=== PATIENT | female | born 1950 | race Caucasian/White ===

== ENCOUNTER 2016-10-04 23:11 | Emergency (ER) | payer OTHER ==
[2016-10-04 23:23] VITALS: TEMP 98.6; BMI 28.9
--- NOTE | 2016-10-04 23:28 | PDOC ---
History of Present Illness - General Chief Complaint: Edema Stated Complaint: R/O DVT Time Seen by Provider: 10/04/16 23:14 - History of Present Illness Initial Comments: This 65-year-old woman with a history of primary lateral sclerosis and hypertension presents accompanied by her family with left lower leg edema and pain. Patient was seen earlier in urgent care and referred here to rule out DVT. Patient states that pain began in the medial dorsal aspect of the left foot approximately 3 days ago. She subsequently injured the top of her foot but pain had begun before that. No history of antecedent trauma or nonhealing wound. She has not had any recent fever or chills. She also has some pain in the lateral aspect of her right upper thigh. There is no history of trauma in this area. No history of abscesses or cellulitis. No history of DVT/pulmonary embolus or thromboembolic disease. Patient is wheelchair bound but has not had any unusual amount of inactivity. No recent surgery; no recent travel Past History - Past Medical History Allergies/Adverse Reactions: Allergies Allergy/AdvReac Type Severity Reaction Status Date / Time Penicillins Allergy Verified 10/04/16 23:18 Home Medications: Ambulatory Orders Amlodipine Besylate [Norvasc -] 10 mg PO DAILY 10/04/16 Tizanidine HCl 2 mg PO DAILY 10/04/16 Clindamycin HCl [Cleocin HCl] 300 mg PO TID #21 capsule 10/05/16 Cancer: Yes (BREAST) HTN: Yes Other medical history: PRIMARY LATERAL SCLEROSIS - Psycho/Social/Smoking Cessation Hx Anxiety: No Suicidal Ideation: No Smoking History: Never smoked Review of Systems - Review of Systems Able to Perform ROS?: Yes Comments:: 12 point review of systems is negative except for what is noted in the history of present illness *Physical Exam - Vital Signs Last Vital Signs Temp Pulse Resp BP Pulse Ox 98.6 F 118 H 18 155/90 95 10/04/16 23:20 10/04/16 23:20 10/04/16 23:20 10/04/16 23:20 10/04/16 23:20 - Physical Exam Comments: GENERAL:Adult female, alert and oriented 3, severe dysarthria but in no acute distress HEAD: Normal with no signs of trauma. EYES: PERRLA, EOMI, sclera anicteric, conjunctiva clear. ENT: Ears normal, nares patent, oropharynx clear without exudates. Dry mucous membranes. NECK: Normal range of motion, supple without lymphadenopathy, JVD, or masses. LUNGS: Breath sounds equal, clear to auscultation bilaterally. No wheezes, and no crackles. HEART:Regular rate and rhythm, normal S1 and S2 without murmur, rub or gallop. ABDOMEN:.normal bowel sounds No guarding,tenderness or rebound.No masses No distention. EXTREMITIES: Left lower extremity: Moderate nonpitting edema to proximal lower leg Mild tenderness medial aspect of the midfoot without deformity or ecchymosis Moderate erythema of left foot extending to ankle, mild erythema to mid calf No posterior tenderness/ cords or masses palpated Right lower extremity: No erythema/edema noted Mild tenderness to palpation lateral aspect of proximal thigh No posterior tenderness/ cords or masses palpated NEUROLOGICAL: Cranial nerves II through XII grossly intact. Alert and responsive, dysarthric but no dysphasia; nonambulatory, wheelchair-bound ED Treatment Course - LABORATORY CBC & Chemistry Diagram: 10/05/16 00:01 10/05/16 00:01 Medical Decision Making - Medical Decision Making This 65-year-old woman with a diagnosis of primary lateral sclerosis presents with a few day history of left lower leg edema and pain; she also has right lateral, proximal right thigh pain without edema. She was seen in urgent care and was sent here to rule out DVT. Exam as noted above shows erythema and tenderness of the left foot with edema extending to the calf. Although there is no open wound in the area of the erythema/edema and tenderness suggest cellulitis. Doppler duplex study of the right lower leg shows no evidence of DVT The patient herself denies shortness of breath or chest pain. Because the patient was noted to have some respiratory changes by her family("breathing heavily"), d-dimer was evaluated as well as CBC/chemistry profile/INR. Vancomycin 1 g IV administered empirically for lower leg extremity cellulitis Laboratory evaluation was essentially normal with white blood cell count of 9200 ; remainder of CBC is normal. Chemistry profile shows no abnormality of electrolytes, renal function or LFTs. INR is not elevated. D-dimer at 245 is minimally elevated above upper limits of normal of 235ng/ml The patient has taken nonsteroidal anti-inflammatory medications (Advil) without side effects in the past. The patient will be given Toradol 30 mg IV for pain relief. Patient reports some relief in her pain after Toradol 30 mg IV. Patient will be discharged with prescription for clindamycin 300 mg 3 times a day for a week. Meanwhile, patient should plan to see her doctor within the next 3-4 days for follow-up check of the left lower leg cellulitis. She should elevate her legs as much as possible until seen by her doctor. She should return to the emergency room if she experiences worsening pain/redness/swelling or develops fever/chills *DC/Admit/Observation/Transfer Diagnosis at time of Disposition: Cellulitis of left foot - Discharge Dispostion Disposition: HOME Condition at time of disposition: Stable - Prescriptions Prescriptions: Clindamycin HCl [Cleocin HCl] 300 mg PO TID #21 capsule - Referrals Referrals: STAFF,NOT ON [Primary Care Provider] - - Patient Instructions Printed Discharge Instructions: Cellulitis Additional Instructions: keep legs elevated as much as possible clindamycin 300mg 3 times a day for 1 week diclofenac 75mg twice a day as needed for pain followup with your doctor within 3-4 days return to ER if you have worsening pain/swelling/redness or you develop fever
[2016-10-05 00:40] LABS: BASOPHIL 1.2 % (0-2.0); EOSINOPHIL 0.9 % (0-4.5); MCH 27.7 pg (25.7-33.7); MCHC 32.8 g/dl (32.0-36.0); MEAN CELL VOLUME 84.3 fl (80-96); MEAN PLT VOLUME 9.1 fl (7.5-11.1); NEUTROPHILS 54.3 % (42.8-82.8); PLATELET COUNT 320 K/MM3 (134-434); RDW 13.1 % (11.6-15.6); WHITE BLOOD COUNT 9.4 K/mm3 (4.0-10.0)
[2016-10-05] MEDS ORDERED: KETOROLAC TROMETHAMINE 30 MG/1 ML VIAL IVPUSH ONE (00:50)
[2016-10-05] MEDS ORDERED: VANCOMYCIN 1,000 MG in DEXTROSE 5%-WATER - 250 ML IVPB ONE (00:51)
[2016-10-05] MEDS ORDERED: VANCOMYCIN 1,000 MG VIAL (RESTRICTED TO ID ONLY) ONE (00:51)
[2016-10-05] MEDS ORDERED: KETOROLAC TROMETHAMINE 30 MG/1 ML VIAL ONE (00:51)
[2016-10-05 00:59] LABS: ALBUMIN 4.6 g/dl (3.4-5.0); ANION GAP 12 (8-16); BILIRUBIN,TOTAL 0.4 mg/dL (0.2-1.0); CALCIUM 9.8 mg/dL (8.5-10.1); CO2 23 mmol/L (21-32); COCKROFT - GAULT 75.65; CREATININE 0.8 mg/dL (0.55-1.02); GLUCOSE,RANDOM 106 mg/dL (74-106); SGOT/AST 17 U/L (15-37); SGPT/ALT 27 U/L (12-78); TOT PROT 7.7 g/dl (6.4-8.2)
[2016-10-05 01:00] LABS: INR 1.06 (0.82-1.09); PROTHROMBIN TIME (PATIENT) 11.7 SEC (9.98-11.88)
[2016-10-05 01:01] LABS: ALK PHOS 91 U/L (45-117); TROPONIN I < 0.02 ng/ml (0.00-0.05)
[2016-10-05 02:14] VITALS: BP 134/85; PULSE 105
== END 2016-10-05 02:22 | disposition home or self-care (01) ==
LOC: FER 23:11
PROC: 3E03329 Introduction of Other Anti-infective into Peripheral Vein, Percutaneous Approach (ICD-10-PCS; principal; 2016-10-04)
PROC: 3E0333Z Introduction of Anti-inflammatory into Peripheral Vein, Percutaneous Approach (ICD-10-PCS; 2016-10-04)
DX: L03.116 Cellulitis of left lower limb (principal); Z85.3 Personal history of malignant neoplasm of breast; G12.29 Other motor neuron disease
CPT/HCPCS: 36415; 80053; 82550; 82553; 84484; 85025; 85379; 85610; 93971-TC; 96374; 96375; 99283-25

== ENCOUNTER 2017-05-02 18:33 | Emergency (ER) | payer OTHER ==
[2017-05-02 19:07] VITALS: TEMP 98.4; BMI 28.9
[2017-05-02 20:30] LABS: BASOPHIL 0.5 % (0-2.0); EOSINOPHIL 0.8 % (0-4.5); MCH 28.2 pg (25.7-33.7); MCHC 33.6 g/dl (32.0-36.0); MEAN CELL VOLUME 83.9 fl (80-96); NEUTROPHILS 54.6 % (42.8-82.8); PLATELET COUNT 333 K/MM3 (134-434); RDW 12.7 % (11.6-15.6); WHITE BLOOD COUNT 8.9 K/mm3 (4.0-10.8)
[2017-05-02 20:35] LABS: INR 1.07 (0.82-1.09)
[2017-05-02 20:41] LABS: ALBUMIN 4.6 g/dl (3.5-5.0); ALK PHOS 87 U/L (32-92); ANION GAP 10 (8-16); BILIRUBIN,TOTAL 0.4 mg/dl (0.2-1.0); CO2 24 mmol/L (22-28); CREATININE 0.7 mg/dl (0.6-1.3); GLUCOSE,RANDOM 91 mg/dl (74-106); SGOT/AST 28 U/L (10-42); SGPT/ALT 29 U/L (10-40); TOT PROT 7.2 g/dl (6.4-8.3)
[2017-05-02 20:53] LABS: PH,URINE 6.5 (4.5-8); URINE APPEARANCE Clear; URINE BILIRUBIN Negative (NEGATIVE); URINE GLUCOSE (UA) Negative (NEGATIVE); URINE KETONE 2+ (NEGATIVE); URINE LEUK ESTERASE Negative (NEGATIVE); URINE NITRITE Negative (NEGATIVE); URINE PROTEIN Negative (NEGATIVE); URINE UROBILINOGEN 0.2 (0.2-1.0)
[2017-05-02 20:57] LABS: URINE BLOOD Trace-lysed (NEGATIVE); URINE COLOR YELLOW
[2017-05-02 21:21] VITALS: BP 136/76; PULSE 95
--- NOTE | 2017-05-02 21:28 | PDOC ---
History of Present Illness - General History Source: Patient Exam Limitations: No Limitations - History of Present Illness Initial Comments: 05/02/17 21:32 The patient is a 66 year old female with past medical history of primary lateral sclerosis who presents to the ED with complaints of 2 days of substernal chest pain. The patient qualifies the pain as pressure-like and is worse when she lays flat. She additionally complains of a non-productive cough but denies any associated shortness of breath. She reports taking Tylenol for her pain and denies ever having a cardiac workup in the past. The patient denies any recent fever, chills, nausea, vomiting, diarrhea, or urinary complaints. <Paige Staley - Last Filed: 05/02/17 21:32> <Bebo Chandler - Last Filed: 05/03/17 00:25> - General Chief Complaint: Chest Pain Stated Complaint: CHEST PAIN X 2 DAYS Past History <Paige Staley - Last Filed: 05/02/17 21:32> - Past Medical History Cancer: Yes (BREAST) COPD: No HTN: Yes Other medical history: PRIMARY LATERAL SCLEROSIS, WHEELCHAIR BOUND - Suicide/Smoking/Psychosocial Hx Smoking History: Never smoked Hx Alcohol Use: No Drug/Substance Use Hx: No Substance Use Type: None <Bebo Chandler - Last Filed: 05/03/17 00:25> - Past Medical History Allergies/Adverse Reactions: Allergies Allergy/AdvReac Type Severity Reaction Status Date / Time Penicillins Allergy Verified 10/04/16 23:18 Home Medications: Ambulatory Orders Amlodipine Besylate [Norvasc -] 10 mg PO DAILY 10/04/16 Tizanidine HCl 2 mg PO DAILY 10/04/16 Ciprofloxacin [Cipro (Restricted To Id)] 500 mg PO Q12H #6 tablet 05/02/17 Review of Systems - Review of Systems Able to Perform ROS?: Yes Comments:: 05/02/17 21:33 GENERAL/CONSTITUTIONAL: No fever or chills. No weakness. HEAD, EYES, EARS, NOSE AND THROAT: No change in vision. No ear pain or discharge. No sore throat. CARDIOVASCULAR: Present: chest pain No shortness of breath. RESPIRATORY: Present: cough No wheezing, or hemoptysis. GASTROINTESTINAL: No nausea, vomiting, diarrhea or constipation. GENITOURINARY: No dysuria, frequency, or change in urination. MUSCULOSKELETAL: No joint or muscle swelling or pain. No neck or back pain. SKIN: No rash NEUROLOGIC: No headache, vertigo, loss of consciousness, or change in strength/ sensation. ENDOCRINE: No increased thirst. No abnormal weight change. HEMATOLOGIC/LYMPHATIC: No anemia, easy bleeding, or history of blood clots. ALLERGIC/IMMUNOLOGIC: No hives or skin allergy. All Other Systems: Reviewed and Negative <gueroPaige william - Last Filed: 05/02/17 21:32> *Physical Exam - Vital Signs Last Vital Signs Temp Pulse Resp BP Pulse Ox 98.4 F 95 H 22 136/76 95 05/02/17 18:34 05/02/17 21:20 05/02/17 21:20 05/02/17 21:20 05/02/17 21:20 - Physical Exam Comments: 05/02/17 21:33 GENERAL: Awake, alert, and fully oriented, in no acute distress HEAD: No signs of trauma EYES: PERRLA, EOMI, sclera anicteric, conjunctiva clear ENT: Auricles normal inspection, hearing grossly normal, nares patent, oropharynx clear without exudates. Moist mucosa NECK: Normal ROM, supple, no lymphadenopathy, JVD, or masses LUNGS: Breath sounds equal, clear to auscultation bilaterally. No wheezes, and no crackles HEART: Reproducible chest wall tenderness. Regular rate and rhythm, normal S1 and S2, no murmurs, rubs or gallops ABDOMEN: Soft, nontender, normoactive bowel sounds. No guarding, no rebound. No masses EXTREMITIES: Normal range of motion, no edema. No clubbing or cyanosis. No cords, erythema, or tenderness NEUROLOGICAL: Chronic neurologic impairment. Cranial nerves II through XII grossly intact. SKIN: Warm, Dry, normal turgor, no rashes or lesions noted. <LuísPaige - Last Filed: 05/02/17 21:32> - Vital Signs Last Vital Signs Temp Pulse Resp BP Pulse Ox 98.4 F 95 H 22 136/76 95 05/02/17 18:34 05/02/17 21:20 05/02/17 21:20 05/02/17 21:20 05/02/17 21:20 <Bebo Chandler - Last Filed: 05/03/17 00:25> ED Treatment Course - LABORATORY CBC & Chemistry Diagram: 05/02/17 20:00 05/02/17 20:00 - ADDITIONAL ORDERS Additional order review: Laboratory Results 05/02/17 05/02/17 05/02/17 20:45 20:00 20:00 PT with INR INR Sodium 137 Potassium 4.0 Chloride 103 Carbon Dioxide 24 Anion Gap 10 BUN 18 Creatinine 0.7 Creat Clearance w eGFR > 60 Random Glucose 91 Calcium 10.0 Total Bilirubin 0.4 AST 28 ALT 29 Alkaline Phosphatase 87 CK-MB (CK-2) 2.3 Troponin I < 0.03 L Total Protein 7.2 Albumin 4.6 Urine Color Yellow Urine Appearance Clear Urine pH 6.5 Ur Specific [place] 1.025 Urine Protein Negative Urine Glucose (UA) Negative Urine Ketones 2+ H Urine Blood Trace-lysed H Urine Nitrite Negative Urine Bilirubin Negative Urine Urobilinogen 0.2 Ur Leukocyte Esterase Negative 05/02/17 20:00 PT with INR 12.0 INR 1.07 Sodium Potassium Chloride Carbon Dioxide Anion Gap BUN Creatinine Creat Clearance w eGFR Random Glucose Calcium Total Bilirubin AST ALT Alkaline Phosphatase CK-MB (CK-2) Troponin I Total Protein Albumin Urine Color Urine Appearance Urine pH Ur Specific [place] Urine Protein Urine Glucose (UA) Urine Ketones Urine Blood Urine Nitrite Urine Bilirubin Urine Urobilinogen Ur Leukocyte Esterase 05/02/17 20:00 RBC 5.58 H MCV 83.9 MCHC 33.6 RDW 12.7 MPV 9.0 Neutrophils % 54.6 Lymphocytes % 37.1 Monocytes % 7.0 Eosinophils % 0.8 Basophils % 0.5 <Paige Staley - Last Filed: 05/02/17 21:32> - LABORATORY CBC & Chemistry Diagram: 05/02/17 20:00 05/02/17 20:00 - ADDITIONAL ORDERS Additional order review: Laboratory Results 05/02/17 05/02/17 05/02/17 20:45 20:00 20:00 PT with INR INR Sodium 137 Potassium 4.0 Chloride 103 Carbon Dioxide 24 Anion Gap 10 BUN 18 Creatinine 0.7 Creat Clearance w eGFR > 60 Random Glucose 91 Calcium 10.0 Total Bilirubin 0.4 AST 28 ALT 29 Alkaline Phosphatase 87 CK-MB (CK-2) 2.3 Troponin I < 0.03 L Total Protein 7.2 Albumin 4.6 Urine Color Yellow Urine Appearance Clear Urine pH 6.5 Ur Specific [place] 1.025 Urine Protein Negative Urine Glucose (UA) Negative Urine Ketones 2+ H Urine Blood Trace-lysed H Urine Nitrite Negative Urine Bilirubin Negative Urine Urobilinogen 0.2 Ur Leukocyte Esterase Negative 05/02/17 20:00 PT with INR 12.0 INR 1.07 Sodium Potassium Chloride Carbon Dioxide Anion Gap BUN Creatinine Creat Clearance w eGFR Random Glucose Calcium Total Bilirubin AST ALT Alkaline Phosphatase CK-MB (CK-2) Troponin I Total Protein Albumin Urine Color Urine Appearance Urine pH Ur Specific [place] Urine Protein Urine Glucose (UA) Urine Ketones Urine Blood Urine Nitrite Urine Bilirubin Urine Urobilinogen Ur Leukocyte Esterase 05/02/17 20:00 RBC 5.58 H MCV 83.9 MCHC 33.6 RDW 12.7 MPV 9.0 Neutrophils % 54.6 Lymphocytes % 37.1 Monocytes % 7.0 Eosinophils % 0.8 Basophils % 0.5 - RADIOLOGY Radiology Studies Ordered: Category Date Time Status CHEST X-RAY PORTABLE* [RAD] Stat Radiology 05/02/17 21:07 Ordered <Bebo Chandler - Last Filed: 05/03/17 00:25> Medical Decision Making - Medical Decision Making 05/03/17 00:23 chest pressure with unremarkable ekg and troponin - x 2. Low risk Heart score. Can fu outpt. ?PE. At risk for this but chest pressure without pleurisy or dyspnea is atypical presentation--will not pursue. Patient reports increased urinary frequency and had "uti" with similar sympomts. Equivocal UA. Will try short course of abx <Bebo Chandler - Last Filed: 05/03/17 00:25> *DC/Admit/Observation/Transfer - Attestations Scribe Attestion: 05/02/17 21:34 Documentation prepared by Paige Staley, acting as medical billing instructor for Bebo Chandler MD/DO. <Paige Staley - Last Filed: 05/02/17 21:32> <Bebo Chandler - Last Filed: 05/03/17 00:25> Diagnosis at time of Disposition: UTI (urinary tract infection) Qualifiers: Urinary tract infection type: acute cystitis Hematuria presence: without hematuria Qualified Code(s): N30.00 - Acute cystitis without hematuria - Discharge Dispostion Disposition: HOME Condition at time of disposition: Stable - Prescriptions Prescriptions: Ciprofloxacin [Cipro (Restricted To Id)] 500 mg PO Q12H #6 tablet - Referrals Referrals: Jeff Choe MD [Primary Care Provider] - - Patient Instructions Printed Discharge Instructions: DI for Atypical Chest Pain - Post Discharge Activity
[2017-05-02 21:36] LABS: URINE BACTERIA MANY /hpf (NEGATIVE); URINE RBC 0-2 /hpf (0-3)
[2017-05-02] MEDS ORDERED: CIPROFLOXACIN 500 MG TABLET (RESTRICTED TO ID) PO ONE (23:47)
[2017-05-02] MEDS ORDERED: CIPROFLOXACIN 250 MG TABLET (RESTRICTED TO ID) PO ONE (23:49)
--- NOTE | 2017-05-03 19:35 | EKG ---
Test Reason : Blood Pressure : / mmHG Vent. Rate : 098 BPM Atrial Rate : 098 BPM P-R Int : 124 ms QRS Dur : 070 ms QT Int : 372 ms P-R-T Axes : 039 010 001 degrees QTc Int : 474 ms NORMAL SINUS RHYTHM NONSPECIFIC ST ABNORMALITY ABNORMAL ECG NO PREVIOUS ECGS AVAILABLE Confirmed by CLAUDIA PEREZ MD ([id number]) on 05/03/2017 7:35:32 PM Referred By: MD CHESTER Confirmed By:CLAUDIA PEREZ MD
== END 2017-05-02 23:57 | disposition home or self-care (01) ==
LOC: FER 18:33
DX: N30.00 Acute cystitis without hematuria (principal); Z85.3 Personal history of malignant neoplasm of breast; I10 Essential (primary) hypertension; Z99.89 Dependence on other enabling machines and devices
CPT/HCPCS: 36415; 71010-TC; 80053; 81003; 81015; 82553; 84484; 85025; 85610; 93005; 99284-25